=== PATIENT | male | born 1990 | race Caucasian/White ===

== ENCOUNTER 2020-01-23 22:41 | Emergency (ER) | payer OTHER ==
[~2020-01-23] VITALS: Ht 180.3 cm; Wt 134.0 kg
[2020-01-23 22:58] VITALS: BP 148/94
--- NOTE | 2020-01-23 23:25 | NUR ---
PT BIB SELF C/O N/V WITH 1 EPISODE OF BRIGHT RED BLOOD TINGED EMESIS THAT WAS ACCOMPANIED WITH SHARP RT SIDED CP AND "STOMACH ACHE" THAT HAS SINCE RESOLVED. ABD IS SOFT AND NON-TENDER. PT DENIES DIARRHEA, CONSTIPATION, DYSURIA, OR, FEVER PMH:DENIES RX:DENIES
--- NOTE | 2020-01-23 23:29 | NUR ---
Dr. Connolly examining patient.
[2020-01-23] MEDS ORDERED: ONDANSETRON 4 MG/2 ML VIAL IVP ONE (23:35)
[2020-01-23] MEDS ORDERED: PANTOPRAZOLE 40 MG INJ VIAL IVP ONE (23:35)
[2020-01-23] MEDS ORDERED: NACL 0.9% 1,000 ML IV ONE (23:35)
[2020-01-24 00:02] LABS: BASOPHILS % (AUTO) 0.3 % (0.0-2.0); EOSINOPHILS # (AUTO) 0.1 K/uL (0-0.4); EOSINOPHILS % (AUTO) 1.9 % (0.0-4.0); HEMATOCRIT 48.2 % (36-52); HEMOGLOBIN 16.4 g/dL (12.0-18.0); LYMPHOCYTES # (AUTO) 1.6 K/uL (2.0-11.5); LYMPHOCYTES % (AUTO) 20.3 % (20.5-51.1); MEAN CORPUSCULAR HEMOGLOBIN 30 pg (27-31); MEAN CORPUSCULAR HGB CONC 34 g/dL (33-37); MEAN CORPUSCULAR VOLUME 88.8 fL (80-94); MONOCYTES # (AUTO) 0.7 K/uL (0.8-1.0); MONOCYTES % (AUTO) 8.8 % (1.7-9.3); NEUTROPHILS # (AUTO) 5.4 K/uL (1.8-7.7); NEUTROPHILS % (AUTO) 68.7 % (42.2-75.2); PLATELET COUNT (AUTO) 197 K/uL (140-450); RED BLOOD CELL COUNT(AUTO) 5.43 MIL/uL (4.20-6.10); RED CELL DISTRIBUTION WIDTH 13.6 % (11.6-13.7); WHITE BLOOD COUNT (AUTO) 7.8 K/uL (4.8-10.8)
--- NOTE | 2020-01-24 00:02 | NUR ---
PT TAKEN XRAY
--- NOTE | 2020-01-24 00:10 | NUR ---
Sally ren in ED - 01/24/20 at 0017 by FRANKIE PT taken to x-ray
--- NOTE | 2020-01-24 00:14 | NUR ---
Sally ren in ED - 01/24/20 at 0014 by AFSHAN PT RETURN FROM CT
--- NOTE | 2020-01-24 00:14 | NUR ---
PT RETURN FROM RAD
[2020-01-24 00:16] LABS: PROTHROMBIN TIME 10.2 secs (10.8-13.4)
[2020-01-24 00:25] LABS: ALBUMIN 3.9 g/dL (3.4-5.0); ANION GAP 14.3 (8-16); CARBON DIOXIDE 28.1 mmol/L (21-32); CREATININE 1.2 mg/dL (0.6-1.3); POTASSIUM 4.4 mmol/L (3.5-5.1); TOTAL BILIRUBIN 0.5 mg/dL (0.0-1.0)
--- NOTE | 2020-01-24 01:50 | NUR ---
X-Ray at bedside.
--- NOTE | 2020-01-24 02:11 | NUR ---
P/O SHOE APPLIED TO PT LEFT FOOT
[2020-01-24 02:19] VITALS: BP 113/59
--- NOTE | 2020-01-24 02:19 | NUR ---
Patient discharged with v/s stable. Written and verbal after care instructions given and explained. Patient alert, oriented and verbalized understanding of instructions. Ambulatory with steady gait. All questions addressed prior to discharge. ID band removed. Patient advised to follow up with PMD. Rx of MINERAL OIL, TYLENOL, AND PROTONIX given. Patient educated on indication of medication including possible reaction and side effects. Opportunity to ask questions provided and answered.
== END 2020-01-24 02:19 | disposition home or self-care (01) ==
LOC: MED 22:41
DX: S90.122A Contusion of left lesser toe(s) without damage to nail, initial encounter (principal); K29.71 Gastritis, unspecified, with bleeding; R03.0 Elevated blood-pressure reading, without diagnosis of hypertension; F17.210 Nicotine dependence, cigarettes, uncomplicated; Z71.6 Tobacco abuse counseling; X58.XXXA Exposure to other specified factors, initial encounter; Y93.89 Activity, other specified; Y92.89 Other specified places as the place of occurrence of the external cause; Y99.8 Other external cause status
CPT/HCPCS: 36415; 73660; 74022; 80053; 85025; 85610; 85730; 96361; 96374; 96375; 99284; C9113; J2405; J7030; Q0092